=== PATIENT | female | born 1970 | race Caucasian/White ===

== ENCOUNTER 2016-12-01 08:06 | Emergency (ER) | payer OTHER, MEDICARE ==
[2016-12-01 07:42] LABS: BASOPHILS 0.2 %; BASOPHILS ABSOLUTE 0.02 10/3/uL (0.0-0.16); EOSINOPHILS 2.1 %; EOSINOPHILS ABSOLUTE 0.18 10/3/uL (0.0-0.53); HEMATOCRIT 38.9 % (36.0-48.0); HEMOGLOBIN 12.8 g/dL (12.0-16.0); IMMATURE GRANULOCYTES 0.2 %; IMMATURE GRANULOCYTES ABSOLUTE 0.02 10/3/uL (0.0-0.11); LYMPHOCYTES 27.7 %; MEAN CORPUS HGB CONC 32.9 g/dL (32.0-36.0); MEAN PLATELET VOLUME 12.2 fL (9.2-13.0); MONOCYTES 4.6 %; NEUTROPHILS 65.2 %; NEUTROPHILS ABSOLUTE 5.65 10/3/uL (2.02-8.40); PLATELET COUNT 242 10/3/uL (150-400); RBC DISTRIBUTION WIDTH 13.3 % (12.0-16.0); RED CELL COUNT 4.42 10/6/uL (4.0-5.6)
[2016-12-01 07:43] LABS: ER CBC TAT 0 Hrs 05 MinsNP; MANUAL DIFF NO %; WHITE BLOOD CELLS 8.7 10/3/uL (4.5-10.5)
[2016-12-01 07:50] LABS: PARTIAL THROMBO TIME 23.1 SEC (22.5-37.2); PROTIME (NOT ORD) 13.5 SEC (12.0-14.5)
[2016-12-01 07:58] LABS: A/G RATIO 1.2 (0.7-1.9); ALBUMIN 4.1 G/DL (3.5-5.0); ALKALINE PHOSPHATASE 68 U/L (45-117); BUN (BLOOD UREA NITROGEN) 22 MG/DL (6-23); CALCIUM, SERUM 9.4 MG/DL (8.5-10.4); CHLORIDE, SERUM 104 MMOL/L (96-112); CO2 (CARBON DIOXIDE) 27 MMOL/L (24-34); CREATININE 0.97 MG/DL (0.55-1.02); DIRECT BILIRUBIN < 0.1 MG/DL (0.0-0.4); GFR AFRICAN AMERICAN 82 ML/MIN (>=60); GFR NON AFRICAN AMERICAN 71 ML/MIN (>=60); GLOBULIN 3.4 G/DL (2.5-4.1); GLUCOSE, SERUM 266 MG/DL (60-99); INDIRECT BILIRUBIN(NOT ORDER) 0.2 MG/DL (0.1-0.9); POTASSIUM, SERUM 3.6 MMOL/L (3.5-5.3); SGOT(AST) 9 U/L (5-40); SGPT(ALT) 28 U/L (5-65); SODIUM, SERUM 141 MMOL/L (135-148); TOTAL BILIRUBIN 0.3 MG/DL (0-1.2); TOTAL PROTEIN 7.5 G/DL (6.0-8.5)
[~2016-12-01 08:06] MED LIST: CRESTOR5 MG PO; DEXILANT PO; ELMIRON100 MG OR; ESTRATESHS PO; FLONASE NAS; KLONO1 PO; KLONO5 PO; LAMICTAL10 PO; NEXIUM40 PO; OXYCOD PO; PROMETRIUM PO; PROVENTINH INH; SANCTURA20 MG PO; SINGULAIR1 PO; STOOL SOFTEN100 MG PO; VITAMIN D PO; ZANAFLEX 4 MG TA4 MG PO; ZIAC2 PO; ZOL50 PO; ZYRTEC ALLGY10 MG PO; [UNRECOGNIZED DRUG - CODE] PO
[2016-12-01 08:36] LABS: ASCORBIC ACID (UR NOT ORDER) NEG (NEG); BILIRUBIN, URINE NEGATIVE (NEG); ER URINALYSIS TAT 0 Hrs 11 Mins; KETONE, URINE NEGATIVE (NEG); LEUKOCYTE ESTERASE(NOT OR NEG (NEG); NITRITE (URINE) NEG (NEG); WBC (NOT ORDERED) (RFLEX) 1 (0-5)
== END 2016-12-01 12:00 | disposition home or self-care (01) ==
LOC: ER 08:06
PROVIDERS: Nurse Practitioner
DX: R21 Rash and other nonspecific skin eruption (principal); I10 Essential (primary) hypertension; J45.909 Unspecified asthma, uncomplicated; Z87.442 Personal history of urinary calculi; Z88.2 Allergy status to sulfonamides; Z88.8 Allergy status to other drugs, medicaments and biological substances; Z79.899 Other long term (current) drug therapy
CPT/HCPCS: 80053; 81001; 82248; 85025; 85610; 85730; 87040; 96372; 99283; A9270-GY; J1200; J3410